=== PATIENT | female | born 1990 | race Caucasian/White ===

== ENCOUNTER 2019-11-16 16:48 | Emergency (ER) | payer BC, OTHER ==
[~2019-11-16] VITALS: Ht 167.6 cm; Wt 93.7 kg
--- NOTE | 2019-11-16 17:20 | NUR ---
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
--- NOTE | 2019-11-16 17:35 | NUR ---
THIS IS A 29 YO FEMALE WHO PRESENTS TO THE ER C/O ABSCESS TO LEFT BREAST X 2 WEEKS. PT HAD BREAST DRAINED 1 WEEK AGO BY "BREAST SURGEON" IN [place]. PT REPORTS SHE HAS BEEN COMPLIANT WITH HER 500-125 AUGMENTIN BID ABX. Addendum: 11/16/19 at 1812 by JPREMO THIS IS A 29 YO FEMALE WHO PRESENTS TO THE ER C/O ABSCESS TO LEFT BREAST X 2 WEEKS. PT HAD BREAST DRAINED 1 WEEK AGO BY "BREAST SURGEON" IN [place]. PT REPORTS SHE HAS BEEN COMPLIANT WITH HER 500-125 AUGMENTIN BID ABX. LARGE QUARTER SIZE ABSCESS NOTED TO MEDIAL UPPER LEFT BREAST NEAR THE NIPPLE WITH INDURATION AND ERYTHEMA. PT AO X 4. SKIN PWD. RESP EVEN AND UNLABORED. CALL LIGHT WITHIN REACH.
[2019-11-16] MEDS ORDERED: AMOX1TAB61 PO (17:38)
[2019-11-16] MEDS ORDERED: LIDOCAINE-MPF 1%, 5ML ONE (17:44)
[2019-11-16] MEDS ORDERED: LIDOCAINE 1%, 10ML INFIL ONE (18:00)
[2019-11-16 18:38] VITALS: BP 166/106
== END 2019-11-16 18:40 | disposition home or self-care (01) ==
LOC: ED 18:20
DX: N61.1 Abscess of the breast and nipple (principal); R07.89 Other chest pain
CPT/HCPCS: 10060; 99283